=== PATIENT | male | born 1965 | race Caucasian/White ===

== ENCOUNTER 2023-04-21 18:35 | Inpatient (IN) | payer BC ==
[2023-04-21 20:10] VITALS: BMI 23.5
[2023-04-21] MEDS: Sodium Chloride 1 GM TAB PO SCH (20:33)
[2023-04-21] MEDS: Thiamine 100 MG TAB PO SCH (20:33)
[2023-04-22] MEDS: Levothyroxine Sodium 25 MCG TAB PO SCH (05:28)
[2023-04-22] MEDS: Multivit, Therapeutic 1 TAB PO SCH (08:09)
[2023-04-22] MEDS: traMADol HCl 50 MG TAB PO PRN (08:10)
[2023-04-22] MEDS: Lisinopril 5 MG TAB PO SCH (08:10)
[2023-04-22] MEDS: Folic Acid 1 MG TAB PO SCH (08:10)
[2023-04-22] MEDS: Sodium Chloride 1 GM TAB PO SCH (08:13)
[2023-04-23 05:15] LABS: #Eosinphils 0.2 thou/uL (0.0-0.7); #Lymphocytes 1.4 thou/uL (1.20-3.40); #Monocytes 0.5 thou/uL (0.11-0.59); #Neutrophils 2.9 thou/uL (1.40-6.50); %Basophils 0.8 % (0.0-1.0); %Eosinophils 3.7 % (0.0-10.0); %Lymphocytes 27.9 % (21.0-51.0); %Monocytes 10.6 % (0.0-10.0); %Neutrophils 57.1 % (42.0-75.0); Hematocrit 24.6 % (42.0-52.0); Hemoglobin 8.9 g/dL (14.0-18.0); Mean Corpuscular HGB CONC 36.3 g/dL (32.0-36.0); Mean Corpuscular Hemoglobin 36.6 pg (27.0-31.0); Mean Platelet Volume 4.5 fL (7.4-10.4); Platelet Count 419 10x3/uL (130-400); RBC Distribution Width 10.4 % (11.5-14.5); Red Blood Cell (RBC) Count 2.44 mill/uL (4.70-6.10); White Blood Cell (WBC) Count 5.1 10x3/uL (4.8-10.8)
[2023-04-23 05:32] LABS: Anion Gap 13 mmol/L (10-20); BUN (Urea Nitrogen) 9 mg/dL (8.4-25.7); Calc. Creatinine Clearance 97 mL/min (70-130); Calcium 8.7 mg/dL (7.8-10.44); Carbon Dioxide 22 mmol/L (22-29); Chloride 101 mmol/L (98-107); Estimated GFR 103; Glucose 94 mg/dL (70-105); Potassium 3.9 mmol/L (3.5-5.1); Sodium 132 mmol/L (136-145)
[2023-04-23 05:45] LABS: MDiff Complete? YES; Macrocytosis SLIGHT = 6-15 cells (100X) (0-5/hpf); Platelet Adequacy Comment Appears Increased
[2023-04-23 05:53] LABS: Thyroid Stimulating Hormone 4.2387 uIU/mL (0.35-4.94)
[2023-04-23 17:41] LABS: Free T4 (Free Thyroxine) 0.78 ng/dL (0.70-1.48)
[2023-04-24 05:26] LABS: Anion Gap 13 mmol/L (10-20); BUN (Urea Nitrogen) 6 mg/dL (8.4-25.7); Calc. Creatinine Clearance 94 mL/min (70-130); Calcium 8.6 mg/dL (7.8-10.44); Carbon Dioxide 21 mmol/L (22-29); Chloride 101 mmol/L (98-107); Estimated GFR 102; Glucose 92 mg/dL (70-105); Potassium 3.7 mmol/L (3.5-5.1); Sodium 131 mmol/L (136-145)
[2023-04-24 06:11] LABS: #Basophils 0.1 thou/uL (0.0-0.2); #Eosinphils 0.2 thou/uL (0.0-0.7); #Lymphocytes 1.6 thou/uL (1.20-3.40); #Monocytes 0.5 thou/uL (0.11-0.59); #Neutrophils 2.5 thou/uL (1.40-6.50); %Basophils 1.3 % (0.0-1.0); %Eosinophils 3.9 % (0.0-10.0); %Lymphocytes 32.9 % (21.0-51.0); %Monocytes 10.2 % (0.0-10.0); %Neutrophils 51.8 % (42.0-75.0); Hematocrit 24.5 % (42.0-52.0); Hemoglobin 9.1 g/dL (14.0-18.0); Mean Corpuscular Hemoglobin 37.1 pg (27.0-31.0); Mean Platelet Volume 4.5 fL (7.4-10.4); Platelet Count 398 10x3/uL (130-400); RBC Distribution Width 10.2 % (11.5-14.5); Red Blood Cell (RBC) Count 2.44 mill/uL (4.70-6.10); White Blood Cell (WBC) Count 4.8 10x3/uL (4.8-10.8)
[2023-04-24 06:46] LABS: MDiff Complete? YES; Rouleaux Formation SLIGHT = 1-5 cells (100X) (None Seen)
[2023-04-25 06:04] LABS: Anion Gap 14 mmol/L (10-20); BUN (Urea Nitrogen) 6 mg/dL (8.4-25.7); Calc. Creatinine Clearance 94 mL/min (70-130); Calcium 8.9 mg/dL (7.8-10.44); Carbon Dioxide 21 mmol/L (22-29); Chloride 100 mmol/L (98-107); Estimated GFR 102; Glucose 84 mg/dL (70-105); Potassium 3.8 mmol/L (3.5-5.1); Sodium 131 mmol/L (136-145)
[2023-04-26 06:09] LABS: Anion Gap 14 mmol/L (10-20); BUN (Urea Nitrogen) 6 mg/dL (8.4-25.7); Calc. Creatinine Clearance 98 mL/min (70-130); Calcium 8.8 mg/dL (7.8-10.44); Carbon Dioxide 21 mmol/L (22-29); Chloride 100 mmol/L (98-107); Estimated GFR 103; Glucose 90 mg/dL (70-105); Potassium 3.8 mmol/L (3.5-5.1); Sodium 131 mmol/L (136-145)
[2023-04-27 06:30] LABS: Anion Gap 14 mmol/L (10-20); BUN (Urea Nitrogen) 6 mg/dL (8.4-25.7); Calc. Creatinine Clearance 96 mL/min (70-130); Calcium 8.9 mg/dL (7.8-10.44); Carbon Dioxide 21 mmol/L (22-29); Chloride 99 mmol/L (98-107); Estimated GFR 102; Glucose 118 mg/dL (70-105); Potassium 3.5 mmol/L (3.5-5.1); Sodium 130 mmol/L (136-145)
[2023-04-28 06:14] LABS: Anion Gap 14 mmol/L (10-20); BUN (Urea Nitrogen) 7 mg/dL (8.4-25.7); Calc. Creatinine Clearance 84 mL/min (70-130); Carbon Dioxide 21 mmol/L (22-29); Chloride 99 mmol/L (98-107); Estimated GFR 96; Glucose 87 mg/dL (70-105); Sodium 130 mmol/L (136-145)
[2023-04-28 06:24] LABS: #Basophils 0.1 thou/uL (0.0-0.2); #Eosinphils 0.2 thou/uL (0.0-0.7); #Lymphocytes 1.6 thou/uL (1.20-3.40); #Monocytes 0.6 thou/uL (0.11-0.59); #Neutrophils 3.5 thou/uL (1.40-6.50); %Basophils 0.9 % (0.0-1.0); %Eosinophils 3.9 % (0.0-10.0); %Lymphocytes 26.8 % (21.0-51.0); %Monocytes 10.6 % (0.0-10.0); %Neutrophils 57.8 % (42.0-75.0); Hematocrit 25.8 % (42.0-52.0); Hemoglobin 9.6 g/dL (14.0-18.0); Hypochromia SLIGHT = 6-15 cells (100X) (0-5/hpf); MDiff Complete? YES; Mean Corpuscular HGB CONC 37.1 g/dL (32.0-36.0); Mean Corpuscular Hemoglobin 36.9 pg (27.0-31.0); Mean Corpuscular Volume 99.6 fl (78.0-98.0); Mean Platelet Volume 4.7 fL (7.4-10.4); Platelet Adequacy Comment Appears Adequate; Platelet Count 394 10x3/uL (130-400); RBC Distribution Width 10.3 % (11.5-14.5); White Blood Cell (WBC) Count 6.1 10x3/uL (4.8-10.8)
[2023-04-28 14:17] LABS: Calcium 8.8 mg/dL (7.8-10.44)
[2023-04-29 11:33] LABS: #Basophils 0.1 thou/uL (0.0-0.2); #Eosinphils 0.2 thou/uL (0.0-0.7); #Lymphocytes 3.2 thou/uL (1.20-3.40); #Monocytes 0.8 thou/uL (0.11-0.59); #Neutrophils 4.1 thou/uL (1.40-6.50); %Basophils 1.4 % (0.0-1.0); %Eosinophils 2.8 % (0.0-10.0); %Lymphocytes 37.9 % (21.0-51.0); %Monocytes 9.9 % (0.0-10.0); Hematocrit 30.4 % (42.0-52.0); Mean Corpuscular HGB CONC 36.3 g/dL (32.0-36.0); Mean Platelet Volume 4.6 fL (7.4-10.4); Platelet Count 512 10x3/uL (130-400); RBC Distribution Width 10.2 % (11.5-14.5); Red Blood Cell (RBC) Count 2.98 mill/uL (4.70-6.10); White Blood Cell (WBC) Count 8.5 10x3/uL (4.8-10.8)
[2023-04-29 11:44] LABS: ALT (SGPT) 31 U/L (8-55); AST (SGOT) 25 U/L (5-34); Albumin 3.9 g/dL (3.5-5.0); Alkaline Phosphatase 113 U/L (40-110); Anion Gap 19 mmol/L (10-20); BUN (Urea Nitrogen) 12 mg/dL (8.4-25.7); Bilirubin, Total 0.5 mg/dL (0.2-1.2); Calc. Creatinine Clearance 70 mL/min (70-130); Calcium 9.3 mg/dL (7.8-10.44); Carbon Dioxide 18 mmol/L (22-29); Chloride 97 mmol/L (98-107); Estimated GFR 77; Globulin 3.3 g/dL (2.4-3.5); Glucose 98 mg/dL (70-105); Protein, Total 7.2 g/dL (6.0-8.3); Sodium 130 mmol/L (136-145)
[2023-04-29 11:49] LABS: Troponin I 0.014 ng/mL (< 0.028)
[2023-04-29 11:55] LABS: MDiff Complete? YES; Macrocytosis SLIGHT = 6-15 cells (100X) (0-5/hpf); Platelet Adequacy Comment Appears Increased
[2023-05-03] MEDS: traMADol HCl 50 MG TAB PO PRN (05:07)
[2023-05-04 05:14] LABS: Sodium 131 mmol/L (136-145)
[2023-05-05 06:06] VITALS: TEMP 98.4
[2023-05-05 09:13] VITALS: BP 127/77
== END 2023-05-05 13:25 | disposition home or self-care (01) | DRG 560 ==
LOC: BURMED 19:35
PROVIDERS: ADMIT Family Medicine; ATTEND Nurse Practitioner
DX: S42.202D Unspecified fracture of upper end of left humerus, subsequent encounter for fracture with routine healing (principal); E87.1 Hypo-osmolality and hyponatremia; V89.2XXD Person injured in unspecified motor-vehicle accident, traffic, subsequent encounter; D53.9 Nutritional anemia, unspecified; E03.9 Hypothyroidism, unspecified; F10.10 Alcohol abuse, uncomplicated; Z79.899 Other long term (current) drug therapy
CPT/HCPCS: 36415; 36416; 71045; 80048; 80053; 83880; 84295; 84439; 84443; 84484; 85025